=== PATIENT | female | born 1985 | race Caucasian/White ===

== ENCOUNTER → 2016-12-30 | Outpatient (CLI) | payer OTHER ==
[2016-12-30 14:15] LABS: Blood Urea Nitrogen 9 mg/dL (7-17); Non-African American GFR(MDRD) >60 (>60 ml/min/1.73 sqM)
[2016-12-30 14:47] LABS: Cancer Anitgen 125 7.5 U/mL (<35.1)
== END | disposition home or self-care (01) ==
LOC: LABWHC1 13:25
PROVIDERS: ATTEND Surgery
DX: D37.3 Neoplasm of uncertain behavior of appendix (principal); Z91.041 Radiographic dye allergy status
CPT/HCPCS: 36415; 82378; 82565; 84520; 86301; 86304

== ENCOUNTER → 2017-01-21 | Outpatient (CLI) | payer OTHER ==
[2017-01-21 10:17] LABS: Basophils % (A) 0 %; Eosinophils % (A) 0 %; HDW 2.47; HGB 14.5 gm/dL (11.4-16.0); Luc # (Auto) 0.08; Luc % (Auto) 1; Lymphocytes # (A) 1.6 k/uL (1.0-4.8); Lymphocytes % (A) 28 %; MCH 28.9 pg (25.0-35.0); MCHC 31.6 g/dL (31.0-37.0); MCV 91.4 fL (80.0-100.0); Mean Platelet Volume 6.5; Monocytes # (A) 0.1 k/uL (0-1.0); Monocytes % (A) 2 %; Neutrophils # (A) 3.8 k/uL (1.3-7.7); Neutrophils % (A) 68 %; RBC 5.03 m/uL (3.80-5.40); RDW 12.5 % (11.5-15.5); WBC 5.6 k/uL (3.8-10.6)
[2017-01-21 10:19] LABS: ALT 27 U/L (9-52); AST 26 U/L (14-36); Alkaline Phosphatase 79 U/L (38-126); Anion Gap 9 mmol/L; Blood Urea Nitrogen 9 mg/dL (7-17); Calcium 9.9 mg/dL (8.4-10.2); Carbon Dioxide 21 mmol/L (22-30); Chloride 108 mmol/L (98-107); Cholesterol 202 mg/dL (<200); Glucose 153 mg/dL (74-99); HDL Cholesterol 51 mg/dL (40-60); Non-African American GFR(MDRD) >60 (>60 ml/min/1.73 sqM); Potassium 4.7 mmol/L (3.5-5.1); Sodium 138 mmol/L (137-145); Total Bilirubin 0.4 mg/dL (0.2-1.3); Total Protein 7.9 g/dL (6.3-8.2); Triglycerides 93 mg/dL (<150)
== END | disposition home or self-care (01) ==
LOC: LABWHC1 09:07
PROVIDERS: ATTEND Family Medicine
DX: Z00.00 Encounter for general adult medical examination without abnormal findings (principal)
CPT/HCPCS: 36415; 80053; 80061; 82306; 84443; 85025

== ENCOUNTER → 2017-04-04 | Outpatient (CLI) | payer OTHER ==
[2017-04-04 12:03] LABS: Hemoglobin A1C 5.7 % (4.2-6.1)
== END ==
LOC: LABWHC1 09:56
PROVIDERS: ATTEND Family Medicine
DX: R73.09 Other abnormal glucose (principal)
CPT/HCPCS: 36415; 82947; 83036

== ENCOUNTER → 2018-01-13 | Outpatient (CLI) | payer OTHER ==
[2018-01-13 09:55] LABS: Blood Urea Nitrogen 11 mg/dL (7-17)
[2018-01-13 16:55] LABS: Cancer Antigen 19-9 3.2 U/mL (0.0-34.9)
== END | disposition home or self-care (01) ==
LOC: LABWHC1 09:31
PROVIDERS: ATTEND Nurse Practitioner
DX: D37.3 Neoplasm of uncertain behavior of appendix (principal)
CPT/HCPCS: 36415; 82378; 82565; 84520; 86301; 86304

== ENCOUNTER → 2018-06-07 | Outpatient (CLI) | payer OTHER ==
[2018-06-07 14:38] LABS: HCT 41.2 % (34.0-46.0); HGB 13.9 gm/dL (11.4-16.0); MCH 30.6 pg (25.0-35.0); MCHC 33.7 g/dL (31.0-37.0); MCV 90.7 fL (80.0-100.0); Mean Platelet Volume 6.2; Platelet Count 358 k/uL (150-450); RBC 4.55 m/uL (3.80-5.40); RDW 11.8 % (11.5-15.5); WBC 9.2 k/uL (3.8-10.6)
[2018-06-07 14:51] LABS: ALT 23 U/L (9-52); AST 22 U/L (14-36); Blood Urea Nitrogen 8 mg/dL (7-17); Glucose 84 mg/dL (74-99); LDH 442 U/L (313-618); Uric Acid 5.2 mg/dL (3.7-7.4)
[2018-06-07 20:45] LABS: HIV 1 AB Non-Reactive (Non-Reactive); HIV AB P24 Non-Reactive (Non-Reactive); HIV P24 AG Non-Reactive (Non-Reactive)
== END ==
LOC: LABWHC1 12:23
PROVIDERS: ATTEND Obstetrics & Gynecology
DX: O26.819 Pregnancy related exhaustion and fatigue, unspecified trimester (principal); O14.90 Unspecified pre-eclampsia, unspecified trimester; Z3A.00 Weeks of gestation of pregnancy not specified
CPT/HCPCS: 36415; 82565; 82947; 83615; 84450; 84460; 84520; 84550; 85027; 86762; 86780; 86850; 86900; 86901; 87340; 87390

== ENCOUNTER 2018-11-08 09:38 | Outpatient (CLI) | payer OTHER ==
[2018-11-08 11:16] LABS: Appearance,Urine Clear (Clear); Bilirubin,Urine Negative (Negative); Blood,Urine Negative (Negative); Color,Urine Light Yellow; Glucose,Urine (UA) Negative (Negative); Ketones,Urine Negative (Negative); Leukocyte Esterase,Urine Negative (Negative); Nitrite,Urine Negative (Negative); Protein,Urine Negative (Negative); Specific Gravity,Urine 1.006 (1.001-1.035); Urobilinogen,Urine <2.0 mg/dL (<2.0)
[2018-11-08 11:48] LABS: Basophils % (A) 0 %; Eosinophils # (A) 0.4 k/uL (0-0.7); Eosinophils % (A) 3 %; HCT 39.2 % (34.0-46.0); HGB 13.1 gm/dL (11.4-16.0); Lymphocytes # (A) 2.6 k/uL (1.0-4.8); Lymphocytes % (A) 22 %; MCH 29.7 pg (25.0-35.0); MCHC 33.6 g/dL (31.0-37.0); MCV 88.6 fL (80.0-100.0); Mean Platelet Volume 6.3; Monocytes # (A) 0.6 k/uL (0-1.0); Monocytes % (A) 5 %; Neutrophils % (A) 69 %; Platelet Count 315 k/uL (150-450); RBC 4.42 m/uL (3.80-5.40); RDW 13.1 % (11.5-15.5); WBC 11.7 k/uL (3.8-10.6)
[2018-11-08 11:56] LABS: ALT 26 U/L (9-52); AST 21 U/L (14-36); Blood Urea Nitrogen 5 mg/dL (7-17); LDH 405 U/L (313-618); Uric Acid 4.6 mg/dL (3.7-7.4)
[2018-11-08] MEDS ORDERED: BETAMET ACET-BETAMETH SOD PHOS 6 MG/ML VIAL IM SCH (12:00)
--- NOTE | 2018-11-08 12:52 | P.MSEPDOC ---
Presenting Problems - Arrival Data Date of Arrival on Unit: 11/08/18 Time of Arrival on Unit: 09:50 Mode of Transport: Ambulatory - Complaint OB-Reason for Admission/Chief Complaint: PIH Comment: Sent from office with script for PIH workup Physician Notification (Pre) - Physician Notified Physician Notified Date: 11/08/18 Physician Notified Time: 12:10 Physician/Practitioner Notifed:: Charlene Spoke With: Charlene New Order Received: Yes - Notification Comment Comment: Labs, pt ass't and pressures reviewd. Pt to receive celestone and return for second dose in 24 hours. Disposition - Disposition OB Disposition: Discharge to home, Written follow up instructions reviewed Discharge Date: 11/08/18 Discharge Time: 12:25 I agree with the RN Medical Screening Exam: Yes Risk & Benefit of care provided described in d/c instruction: Yes Diagnosis: GESTATIONAL HTN W/O SIGNIFICANT PROTEINURIA, THIRD TRIMESTER
== END 2018-11-08 12:25 | disposition home or self-care (01) ==
LOC: FBPOP 09:38
PROVIDERS: ATTEND Obstetrics & Gynecology
DX: O13.3 Gestational [pregnancy-induced] hypertension without significant proteinuria, third trimester (principal); Z3A.00 Weeks of gestation of pregnancy not specified
CPT/HCPCS: 59025; 96372; 82570; 84156; 82565; 83615; 84450; 84460; 84520; 84550; 85025; 81003; J0702

== ENCOUNTER 2018-11-09 12:04 | Outpatient (CLI) | payer OTHER ==
[2018-11-09] MEDS ORDERED: BETAMET ACET-BETAMETH SOD PHOS 6 MG/ML VIAL IM SCH (12:15)
--- NOTE | 2018-11-13 17:37 | P.MSEPDOC ---
Presenting Problems - Arrival Data Date of Arrival on Unit: 11/09/18 Time of Arrival on Unit: 12:03 Mode of Transport: Ambulatory - Complaint Comment: pt returned for 2nd celestone injection and NST per order of Dr. Chang Physician Notification (Pre) - Physician Notified Physician Notified Date: 11/09/18 Physician Notified Time: 12:48 Physician/Practitioner Notifed:: Dr. Chang Spoke With: Dr. Chang New Order Received: No - Notification Comment Comment: discharge home, follow up in office at scheduled appt on Tuesday Disposition - Disposition OB Disposition: Admit Discharge Date: 11/09/18 Discharge Time: 12:55 I agree with the RN Medical Screening Exam: Yes Risk & Benefit of care provided described in d/c instruction: Yes Diagnosis: GESTATIONAL HTN W/O SIGNIFICANT PROTEINURIA, THIRD TRIMESTER
== END 2018-11-09 12:55 | disposition home or self-care (01) ==
LOC: FBPOP 12:04
PROVIDERS: ATTEND Obstetrics & Gynecology
DX: O13.3 Gestational [pregnancy-induced] hypertension without significant proteinuria, third trimester (principal); Z3A.00 Weeks of gestation of pregnancy not specified
CPT/HCPCS: 59025; 96372; J0702

== ENCOUNTER 2018-11-21 10:26 | Outpatient (CLI) | payer OTHER ==
[2018-11-21 11:28] LABS: Appearance,Urine Clear (Clear); Bilirubin,Urine Negative (Negative); Blood,Urine Negative (Negative); Color,Urine Yellow; Glucose,Urine (UA) Negative (Negative); Ketones,Urine Negative (Negative); Leukocyte Esterase,Urine Negative (Negative); Nitrite,Urine Negative (Negative); PH, Urine 6.5 (5.0-8.0); Protein,Urine Negative (Negative); Specific Gravity,Urine 1.011 (1.001-1.035); Urobilinogen,Urine <2.0 mg/dL (<2.0)
[2018-11-21 11:40] LABS: ALT 29 U/L (9-52); AST 22 U/L (14-36); Blood Urea Nitrogen 5 mg/dL (7-17); LDH 452 U/L (313-618); Uric Acid 4.4 mg/dL (3.7-7.4)
[2018-11-21 11:42] LABS: Basophils % (A) 0 %; Eosinophils # (A) 0.2 k/uL (0-0.7); Eosinophils % (A) 2 %; HCT 38.7 % (34.0-46.0); HGB 13.1 gm/dL (11.4-16.0); Lymphocytes # (A) 2.7 k/uL (1.0-4.8); Lymphocytes % (A) 24 %; MCH 29.7 pg (25.0-35.0); MCHC 33.8 g/dL (31.0-37.0); MCV 87.8 fL (80.0-100.0); Mean Platelet Volume 6.6; Monocytes # (A) 0.7 k/uL (0-1.0); Monocytes % (A) 6 %; Neutrophils # (A) 7.6 k/uL (1.3-7.7); Neutrophils % (A) 66 %; Platelet Count 333 k/uL (150-450); RBC 4.41 m/uL (3.80-5.40); RDW 13.1 % (11.5-15.5); WBC 11.4 k/uL (3.8-10.6)
[2018-11-21 12:30] VITALS: RESP 16; TEMP 98.4
[2018-11-21 13:11] VITALS: BP 129/70; PULSE 93
--- NOTE | 2018-11-21 17:12 | P.MSEPDOC ---
Presenting Problems - Arrival Data Date of Arrival on Unit: 11/21/18 Time of Arrival on Unit: 10:26 Mode of Transport: Ambulatory - Complaint OB-Reason for Admission/Chief Complaint: PIH Comment: pt sent from home with elevated blood pressures, pt had HEELP and Pre- eclampsia. with previous and delivered at 31 weeks gestation. Pt has recieved celestone. with this Medical History - Information : 2 Para: 1 Term: 0 : 1 Abortions: Spontaneous or Elective: 0 Number of Living Children: 1 - Gestational Age Gestational Age by JODY (wks/days): 31 Weeks and 2 Days - History Complications: Preeclampsia, Prior Review of Systems - Review of Systems Constitutional: No problems Breast: No problems ENT: Nasal congestion Cardiovascular: No problems Respiratory: No problems Gastrointestinal: No problems Genitourinary: No problems Musculoskeletal: No problems Neurological: No problems Skin: No problems Vital Signs - Temperature Temperature: 98.4 F Temperature Source: Temporal Artery Scan - Pulse Pulse Oximetery Pulse Rate: 93 Pulse Assessment Method: Automatic Cuff - Respirations Respiratory Rate: 16 Oxygen Delivery Method: Room Air - Blood Pressure Right Arm Blood Pressure: 129/70 Blood Pressure Mean: 89 Blood Pressure Source: Automatic Cuff Medical Screen Scoring (Pre) - Cervical Exam Dilation: Exam Deferred - Uterine Contractions Frequency: N/A - Maternal Vital Signs Maternal Temperature: N/A Maternal Blood Pressure: N/A Signs of Preeclampsia: N/A Maternal Respirations: N/A - Pain Assessment Pain Scale Used: Numeric (1 - 10) Pain Intensity: 0 - Maternal Trauma Maternal Trauma: N/A - Assessment Baseline FHR: 150 Heart Rate - NICHD Category: Category I (Normal) = 0 NST: Reactive Position: N/A Station: N/A - Total Score Total Score (Pre): 0 - Level of Risk Level of Risk: Low (0-5) Physician Notification (Pre) - Physician Notified Physician Notified Date: 11/21/18 Physician Notified Time: 11:03 Physician/Practitioner Notifed:: Dr Charlene Garcia Order Received: Yes Medical Screen Scoring (Post) - Cervical Exam Dilation: Exam Deferred Effacement: Exam Deferred - Uterine Contractions Frequency: N/A Duration: N/A Intensity: N/A - Maternal Vital Signs Maternal Temperature: N/A Maternal Blood Pressure: N/A Signs of Preeclampsia: N/A Maternal Respirations: N/A - Pain Assessment Pain Scale Used: Numeric (1 - 10) Pain Intensity: 0 - Maternal Trauma Maternal Trauma: N/A - Assessment Heart Rate: 135 Heart Rate - NICHD Category: Category I (Normal) = 0 NST: Reactive Position: N/A Station: N/A - Total Score Total Score (Post): 0 - Post Treatment Level of Risk Post Treatment Level of Risk: Low (0-5) Disposition - Disposition OB Disposition: Discharge to home, Written follow up instructions reviewed Discharge Date: 11/21/18 Discharge Time: 12:45 I agree with the RN Medical Screening Exam: Yes Risk & Benefit of care provided described in d/c instruction: Yes Diagnosis: GESTATIONAL HTN W/O SIGNIFICANT PROTEINURIA, THIRD TRIMESTER
== END 2018-11-21 12:45 | disposition home or self-care (01) ==
LOC: FBPOP 10:26
PROVIDERS: ATTEND Obstetrics & Gynecology
DX: O13.3 Gestational [pregnancy-induced] hypertension without significant proteinuria, third trimester (principal); Z3A.31 31 weeks gestation of pregnancy
CPT/HCPCS: 59025; 81003; 82565; 82570; 83615; 84156; 84450; 84460; 84520; 84550; 85025; 99215

== ENCOUNTER 2018-12-07 09:20 | Outpatient (CLI) | payer OTHER ==
[2018-12-07 10:26] LABS: Appearance,Urine Clear (Clear); Bacteria,Urine Rare /hpf; Bilirubin,Urine Negative (Negative); Blood,Urine Negative (Negative); Color,Urine Yellow; Glucose,Urine (UA) Negative (Negative); Ketones,Urine Negative (Negative); Leukocyte Esterase,Urine Trace (Negative); Mucus,Urine Rare /hpf; Nitrite,Urine Negative (Negative); Protein,Urine Trace (Negative); Squamous Epithelial Cell,Urine 1 /hpf (0-4); Urobilinogen,Urine <2.0 mg/dL (<2.0); WBC,Urine 1 /hpf (0-5)
[2018-12-07] MEDS ORDERED: CALCIUM GLUCONATE 1 GM/10 ML VIAL IV PRN (11:00)
[2018-12-07] MEDS ORDERED: LACTATED RINGERS 1,000 ML IV SCH (11:00)
[2018-12-07 11:03] LABS: Basophils % (A) 0 %; Eosinophils # (A) 0.5 k/uL (0-0.7); Eosinophils % (A) 5 %; HCT 38.1 % (34.0-46.0); HGB 13.5 gm/dL (11.4-16.0); Lymphocytes # (A) 2.7 k/uL (1.0-4.8); Lymphocytes % (A) 24 %; MCH 30.8 pg (25.0-35.0); MCHC 35.4 g/dL (31.0-37.0); Mean Platelet Volume 7.1; Monocytes # (A) 0.5 k/uL (0-1.0); Monocytes % (A) 5 %; Neutrophils # (A) 7.1 k/uL (1.3-7.7); Neutrophils % (A) 65 %; Platelet Count 321 k/uL (150-450); RBC 4.38 m/uL (3.80-5.40); RDW 13.9 % (11.5-15.5); WBC 11.1 k/uL (3.8-10.6)
[2018-12-07 11:11] LABS: INR 0.9 (<1.2); Partial Thromboplastin Time 22.8 sec (22.0-30.0); Prothrombin Time 9.6 sec (9.0-12.0)
[2018-12-07] MEDS ORDERED: MAGNESIUM SULFATE-WATER PMX 4 GM in WATER FOR INJECTION 1 100ML.BAG IVPB ONE (11:15)
[2018-12-07 11:18] LABS: ALT 34 U/L (9-52); AST 32 U/L (14-36); Blood Urea Nitrogen 5 mg/dL (7-17); LDH 502 U/L (313-618); Uric Acid 4.4 mg/dL (3.7-7.4)
[2018-12-07] MEDS ORDERED: MAGNESIUM SULFATE-WATER PMX 20 GM in WATER FOR INJECTION 1 500ML.BAG IV SCH (11:30)
[2018-12-07] MEDS ORDERED: hydrALAZINE HCL 20 MG/ML 1 ML VIAL IVP PRN ×2 (12:19)
[2018-12-07] MEDS ORDERED: LABETALOL SYRINGE 5 MG/ML IVP PRN ×2 (12:19)
--- NOTE | 2018-12-07 12:30 | P.HPOB ---
History of Present Illness H&P Date: 12/07/18 Chief Complaint: Hypertension in . This patient is a pleasant 33-year-old 2 para 1 female estimated date of confinement 01/21/2019 estimated gestational age 33-4/7 weeks gestation who presented to my office today for a office visit. 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 Patient's been followed closely by myself and maternal- medicine on a weekly and biweekly basis. Patient was at [facility] on Tuesday and had some mild blood pressure elevations. Patient states that they have increased in the last day or so. Blood pressure in the office this morning was 160/94 and she's had repetiti ve blood pressures here in the range of 140-180/90-100. In the office she had 2+ proteinuria however she has trace proteinuria here. heart tones are category 1. Patient normal amniotic fluid index an ultrasound on Tuesday at the maternal- medicine office. Patient is having significant swelling but does deny headache. Review of Systems Constitutional: Denies chills, Denies fever Genitourinary: Reports Menstruation: Reports amenorrhea Past Medical History Past Medical History: Cancer, GERD/Reflux Additional Past Medical History / Comment(s): Patient has a history of polycystic ovary syndrome, hx. of anemia, hx. of ca of the appendix. History of Any Multi-Drug Resistant Organisms: None Reported Past Surgical History: Appendectomy, Section Additional Past Surgical History / Comment(s): Patient has had a laparoscopy. 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 Past Anesthesia/Blood Transfusion Reactions: No Reported Reaction Smoking Status: Never smoker - Past Family History Mother Family Medical History: No Reported History Medications and Allergies Home Medications Medication Instructions Recorded Confirmed Type Aspirin [Adult Low Dose Aspirin EC] 81 mg PO DAILY 11/08/18 12/07/18 History Pedi Multivit No.25/Folic Acid 2 tab PO DAILY 11/08/18 12/07/18 History [Flintstones Multivit Chew Tab] Allergies Allergy/AdvReac Type Severity Reaction Status Date / Time Iodinated Contrast- Oral and Allergy Rash/Hives Verified 12/07/18 09:45 IV Dye Exam Intake and Output 12/06/18 12/07/18 12/07/18 22:59 06:59 14:59 Other: Weight 106.141 kg - OBG Physical Exam Uterus: enlarged (Fundal height is 35 cm) Results Laboratory values as above. 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 Patient received Celestone on November 08. Anatomy ultrasound done on Tuesday shows normal gross Result Diagrams: 12/07/18 10:51 12/07/18 10:51 Abnormal Lab Results - Last 24 Hours (Table) 12/07/18 12/07/18 12/07/18 Range/Units 10:00 10:00 10:51 WBC (3.8-10.6) k/uL BUN 5 L (7-17) mg/dL Creatinine 0.46 L (0.52-1.04) mg/dL Urine Protein Trace H (Negative) Ur Leukocyte Esterase Trace H (Negative) Urine Bacteria Rare H (None) /hpf Urine Mucus Rare H (None) /hpf U Random Total Protein 18 H (<12) mg/dL 12/07/18 Range/Units 10:51 WBC 11.1 H (3.8-10.6) k/uL BUN (7-17) mg/dL Creatinine (0.52-1.04) mg/dL Urine Protein (Negative) Ur Leukocyte Esterase (Negative) Urine Bacteria (None) /hpf Urine Mucus (None) /hpf U Random Total Protein (<12) mg/dL Assessment and Plan Assessment: This is a pleasant 33-year-old 2 para 1 female 33-4/7 weeks gestation with significant blood pressure elevations and history of help syndrome in a previous . Patient appears to have evolving severe preeclampsia at this time. I discussed this with Dr. Gu with [facility] and plan is to institute magnesium therapy treatment, treat her blood pressures and transfer to tertiary facility for care due to possible delivery. The patient and I and her have discussed this and agrees with transfer at this time. There is no evidence of maternal/ compromise at this time. (1) 33 weeks gestation of Current Visit: Yes Status: Acute Code(s): Z3A.33 - 33 WEEKS GESTATION OF SNOMED Code(s): 77220258 (2) Gestational hypertension Current Visit: Yes Status: Acute Code(s): O13.9 - GESTATIONAL HTN W/O SIGNIF ICANT PROTEINURIA, UNSP TRIMESTER SNOMED Code(s): 155415108
[2018-12-07] MEDS ORDERED: BETAMET ACET-BETAMETH SOD PHOS 6 MG/ML VIAL IM SCH (13:30)
[2018-12-07 14:27] VITALS: BP 162/91; PULSE 94; RESP 16; TEMP 98.2
--- NOTE | 2018-12-07 17:41 | P.MSEPDOC ---
Presenting Problems - Arrival Data Date of Arrival on Unit: 12/07/18 Time of Arrival on Unit: 09:45 Mode of Transport: Ambulatory - Complaint OB-Reason for Admission/Chief Complaint: Celestone Injection, PIH, Other Comment: transfer to [facility] high risk. Medical History - Information : 2 Para: 1 Term: 0 : 1 Abortions: Spontaneous or Elective: 0 Number of Living Children: 1 - Gestational Age Gestational Age by JODY (wks/days): 33 Weeks and 4 Days - History Complications: Other Comment: pitera Review of Systems - Review of Systems Constitutional: No problems Breast: No problems ENT: No problems Cardiovascular: No problems Respiratory: No problems Gastrointestinal: No problems Genitourinary: No problems Musculoskeletal: No problems Neurological: No problems Skin: No problems Vital Signs - Temperature Temperature: 98.2 F Temperature Source: Temporal Artery Scan - Pulse Right Radial Pulse Rate: 94 Pulse Assessment Method: Automatic Cuff - Respirations Respiratory Rate: 16 Oxygen Delivery Method: Room Air O2 Sat by Pulse Oximetry: 98 - Blood Pressure Left Arm Blood Pressure: 162/91 Blood Pressure Mean: 114 Blood Pressure Source: Automatic Cuff Medical Screen Scoring (Pre) - Cervical Exam Dilation: Exam Deferred Effacement: Exam Deferred Membranes: Intact - Uterine Contractions Frequency: N/A Duration: N/A Intensity: N/A - Maternal Vital Signs Maternal Temperature: N/A Signs of Preeclampsia: Headache = 1 Maternal Respirations: N/A - Pain Assessment Pain Scale Used: Numeric (1 - 10) Pain Intensity: 0 Pain Behavior: Vocalization - Maternal Trauma Maternal Trauma: N/A - Assessment Baseline FHR: 130 Heart Rate - NICHD Category: Category I (Normal) = 0 NST: Reactive Position: N/A Station: N/A - Total Score Total Score (Pre): 1 - Level of Risk Level of Risk: Low (0-5) Physician Notification (Pre) - Physician Notified Physician Notified Date: 12/07/18 Physician Notified Time: 09:30 Physician/Practitioner Notifed:: tierra Spoke With: tierra New Order Received: No (started sent with orders) - Notification Comment Comment: history pih severe last preg. elevated bp's in office today. hands swollen, 2+ protien in office.head ache on and off last week. Disposition - Disposition OB Disposition: Transfer to other dept./facility Transferred to:: [facility] Discharge Date: 12/07/18 Discharge Time: 13:40 I agree with the RN Medical Screening Exam: Yes Risk & Benefit of care provided described in d/c instruction: Yes Diagnosis: GESTATIONAL HTN W/O SIGNIFICANT PROTEINURIA, THIRD TRIMESTER
--- NOTE | 2018-12-07 17:44 | P.DS ---
Providers Expected date of discharge: 12/07/18 Attending physician: Elvin Chang Primary care physician: Stated None - Discharge Diagnosis(es) (1) 33 weeks gestation of Status: Acute (2) Gestational hypertension Status: Acute Hospital Course: Please see dictated H&P for intimate details of this patient's admission. Brief summary this pleasant 33-year-old 2 para 1 female 33-4/7 weeks gestation admitted from my office with significant hypertension. Patient's blood pressure in labor and delivery is also significantly elevated and she is started on magnesium sulfate and given antihypertensives. She is stabilized and transferred to maternal- medicine [facility]. Patient Condition at Discharge: Stable Plan - Discharge Summary Discharge Rx Participant: No New Discharge Prescriptions: No Action Pedi Multivit No.25/Folic Acid [Flintstones Multivit Chew Tab] 2 tab PO DAILY Aspirin [Adult Low Dose Aspirin EC] 81 mg PO DAILY Discharge Medication List Aspirin [Adult Low Dose Aspirin EC] 81 mg PO DAILY 11/08/18 [History] Pedi Multivit No.25/Folic Acid [Flintstones Multivit Chew Tab] 2 tab PO DAILY 11/08/18 [History] Discharge Disposition: OTHER INSTITUTION NOT DEFINED
== END 2018-12-07 13:45 | disposition other institution (70) ==
LOC: FBPOP 09:20
PROVIDERS: ATTEND Obstetrics & Gynecology
DX: O13.3 Gestational [pregnancy-induced] hypertension without significant proteinuria, third trimester (principal); Z3A.33 33 weeks gestation of pregnancy
CPT/HCPCS: 59025; 96376; 99215; 96365; 96367; 96375; 96372; 82570; 84156; 82565; 83615; 84450; 84460; 84520; 84550; 85025; 85610; 85730; 81001; J0360; J0702; J3475 ×2; 96361; 96366